=== PATIENT | male | born 1960 | race Caucasian/White ===

== ENCOUNTER 2017-05-19 05:47 | Emergency (ER) | payer OTHER ==
[~2017-05-19] VITALS: Ht 172.7 cm; Wt 66.7 kg
[2017-05-19 06:01] VITALS: BP 127/77
[2017-05-19] MEDS ORDERED: ZOLOFT50 MG PO (06:07)
[2017-05-19] MEDS ORDERED: GABAPENTIN 100100 MG PO (06:07)
[2017-05-19] MEDS ORDERED: TRAZODONE HCL50 MG PO (06:08)
[2017-05-19] MEDS ORDERED: HYDROCODON-ACE1 EAC7 PO (06:28)
== END 2017-05-19 06:36 | disposition home or self-care (01) ==
LOC: M.ERS 05:47
DX: S62.102A Fracture of unspecified carpal bone, left wrist, initial encounter for closed fracture (principal); W18.39XA Other fall on same level, initial encounter; Y93.89 Activity, other specified; Y92.830 Public park as the place of occurrence of the external cause; Y99.8 Other external cause status

== ENCOUNTER 2018-07-20 10:22 | Emergency (ER) | payer OTHER ==
[~2018-07-20] VITALS: Ht 172.7 cm; Wt 65.8 kg
[~2018-07-20 10:22] MED LIST: GABAPENTIN 100100 MG PO; HYDROCODON-ACE1 EAC7 PO; TRAZODONE HCL50 MG PO; ZOLOFT50 MG PO
[2018-07-20 11:01] LABS: HEMATOCRIT 44.6 % (42.0-52.0); HEMOGLOBIN 15.1 gm/dL (14.0-18.0); MCHC 33.9 g/dL (28.0-37.0); MCV 103.3 fL (80.0-100.0); MPV 7.5 fl. (7.2-11.1); RBC 4.31 mil/uL (4.50-6.00); RDW-CV 13.8 % (10.5-14.5); WBC 7.3 thou/uL (4.0-11.0)
[2018-07-20 11:18] LABS: ALBUMIN 3.9 g/dL (3.4-5.0); CALCIUM 9.3 mg/dL (8.5-10.1); POTASSIUM 4.2 mmol/L (3.5-5.1); TOTAL BILIRUBIN 0.4 mg/dL (<0.1-1.0); TOTAL PROTEIN 8.1 g/dL (6.4-8.2)
[2018-07-20] MEDS ORDERED: HYDROCODONE-AP1 EAC6 PO (11:42)
[2018-07-20 12:03] VITALS: BP 152/90
== END 2018-07-20 12:16 | disposition home or self-care (01) ==
LOC: M.ERS 10:22
PROVIDERS: Emergency Medicine Emergency Medical Services
DX: S22.41XA Multiple fractures of ribs, right side, initial encounter for closed fracture (principal); J98.11 Atelectasis; F31.9 Bipolar disorder, unspecified; G47.00 Insomnia, unspecified; F17.210 Nicotine dependence, cigarettes, uncomplicated; Y04.2XXA Assault by strike against or bumped into by another person, initial encounter; Y93.89 Activity, other specified; Y92.89 Other specified places as the place of occurrence of the external cause; Y99.8 Other external cause status